=== PATIENT | male | born 1960 | race Caucasian/White ===

== ENCOUNTER 2017-11-30 08:11 | Emergency (ER) | payer BC ==
[2017-11-30] MEDS ORDERED: HYDROMORPHONE HCL 1 MG/ML SYRINGE IVP ONE (10:21)
[2017-11-30] MEDS ORDERED: ONDANSETRON HCL IV 4 MG/2 ML VIAL IVP ONE (10:22)
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
[2017-11-30 12:42] LABS: HEMATOCRIT 48.2 % (42.0-52.0); HEMOGLOBIN 16.3 gm/dl (14.0-18.0); MEAN CELL VOLUME 94.5 fl (81-97); MEAN CORPUSCULAR HGB CONC 33.8 g/dl (32-36); MEAN PLATELET VOLUME 9.3 fl (7.4-10.4); PLATELET COUNT 308 K/uL (130-400); RED CELL DISTRIBUTION WIDTH 14.2 % (11.5-14.5); URINE APPEARANCE CLEAR; URINE BILIRUBIN NEGATIVE (NEGATIVE); URINE BLOOD NEGATIVE (NEGATIVE); URINE COLOR YELLOW; URINE GLUCOSE (UA) NEGATIVE (NEGATIVE); URINE KETONE NEGATIVE (NEGATIVE); URINE LEUKOCYTE ESTERASE NEGATIVE (NEGATIVE); URINE NITRITE NEGATIVE (NEGATIVE); URINE PROTEIN NEGATIVE (NEGATIVE); URINE UROBILINOGEN 0.2 E.U./dL (0.20 - 1.00); WHITE BLOOD COUNT W/O DIFF 10.7 K/uL (4.2-12.2)
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
[2017-11-30 12:56] LABS: BLOOD UREA NITROGEN 12 mg/dL (6-20); CREATININE 0.8 mg/dL (0.7-1.2); EST GLOMERULAR FILTRATION RATE > 60 mL/min
[2017-11-30 12:59] LABS: GLUCOSE,RANDOM 118 mg/dL (74-109)
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
--- NOTE | 2017-11-30 13:08 | RADIOLOGY REPORT ---
EXAM: LEFT TOES HISTORY: POST LEFT GREAT TOE REDUCTION. TECHNIQUE: AP and lateral views of the left toes were obtained. Comparison: Left great toe study from earlier today on 11/30/17. Encounter: Initial. FINDINGS: Since the prior exam there has been reduction of the previously seen dislocation at the first MTP joint. There is some mild relative hyperextension at the first MTP joint currently, but this may just be positional with the dislocation having been reduced. No definite associated fracture identified. IMPRESSION: PREVIOUSLY SEEN DISLOCATION AT THE FIRST MTP JOINT HAS BEE REDUCED. MILD RELATIVE HYPEREXTENSION AT THE FIRST MTP JOINT CURRENTLY. JOB NUMBER: [id number] MTDD
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
== END 2017-11-30 13:59 | disposition left against medical advice (07) ==
LOC: ER 08:11
DX: S01.02XA Laceration with foreign body of scalp, initial encounter (principal); S09.90XA Unspecified injury of head, initial encounter; S42.011A Anterior displaced fracture of sternal end of right clavicle, initial encounter for closed fracture; S93.122A Dislocation of metatarsophalangeal joint of left great toe, initial encounter; I10 Essential (primary) hypertension; F17.210 Nicotine dependence, cigarettes, uncomplicated; V43.52XA Car driver injured in collision with other type car in traffic accident, initial encounter
CPT/HCPCS: 12031; 28630; 70450; 71260; 72125; 73660; 74160; 80048; 81003; 85027; 96374; 96375; 99284; J1170; J2405